=== PATIENT | male | born 1980 | race Caucasian/White ===

== ENCOUNTER 2019-06-02 10:24 | Inpatient (IN) | payer BC ==
[~2019-06-02] VITALS: Ht 172.7 cm; Wt 123.3 kg
[2019-06-02] MEDS ORDERED: PRINIVIL20 MG PO (10:36)
[2019-06-02 10:59] LABS: COLLECTION METHOD CLEAN CATCH
[2019-06-02 11:02] LABS: BASO % 0.1 % (0.0-2.0); GRAN # 19.5 (1.4-6.5); GRAN % 89.4 % (42.2-75.2); HEMATOCRIT 47.8 % (42.0-52.0); LYMPH # 0.9 (1.2-3.4); LYMPH % 4.3 % (20.0-51.0); MEAN CELL VOLUME 83 fl (80.0-100.0); MEAN CORPUSCULAR HEMOGLOBIN 29 pg (27.0-31.0); MEAN CORPUSCULAR HGB CONC 36 g/dl (33.0-37.0); MEAN PLATELET VOLUME 12.4 fl (7.4-10.4); MONO # 1.2 (0.1-0.6); MONO % 5.6 % (1.7-9.3); PLATELET COUNT 179 K/mm3 (130-400); RED BLOOD COUNT 5.78 M/mm3 (4.20-5.60); REDCELL DISTRIBUTION WIDTH-CV 13.2 % (11.5-14.5)
[2019-06-02 11:11] LABS: MUCOUS Present /lpf; PH 6 (5-8); SQUAMOUS EPITHELIAL 0-2 /hpf; URINE APPEARANCE Clear; URINE BACTERIA None Seen /hpf; URINE BILIRUBIN Negative (NEGATIVE); URINE BLOOD 1+ (NEGATIVE); URINE COLOR Yellow; URINE GLUCOSE Negative (NEGATIVE); URINE KETONE Negative (NEGATIVE); URINE LEUKOCYTE ESTERASE Negative (NEGATIVE); URINE NITRATE Negative (NEGATIVE); URINE PROTEIN(semi-quant) 2+ (NEGATIVE); URINE UROBILINOGEN Negative (NEGATIVE)
[2019-06-02 11:17] LABS: ALBUMIN 4.7 gm/dL (3.5-5.0); BILIRUBIN,TOTAL 1.4 mg/dL (0.0-1.0); CALCIUM 9.4 mg/dL (8.4-10.2); CREATININE, serum 0.92 (0.66-1.25); POTASSIUM 4.3 mmol/L (3.4-5.0)
[2019-06-02 11:30] LABS: C-REACTIVE PROTEIN 19.8 mg/dL (0.0-0.9)
[2019-06-02 12:54] VITALS: BP 129/79; PULSE 90; TEMP 99.4
[2019-06-02 12:58] LABS: CHOLESTEROL RISK RATIO 4.3
--- NOTE | 2019-06-02 14:03 | NUR ---
PATIENT ADMITTED TO ROOM 319 AT BEDSIDE. HE WAS COMPLAINING OF ABDOMEN PAIN AND PRN DILAUDID WAS GIVEN FOR THIS. ASSESSMENT COMPLETED AND WILL NOTIFY DR. MILLER OF HIS ARRIVAL
--- NOTE | 2019-06-02 15:05 | NUR ---
PRN DILAUDID GIVEN FOR COMPLAINTS OF PAIN. FAMILY AT BEDSIDE. DENIES FURTHER NEEDS AT THIS TIME.
[2019-06-02 15:22] VITALS: BP 130/78; PULSE 94; TEMP 98.5
--- NOTE | 2019-06-02 19:27 | NUR ---
PATIENT COMPLAINS OF ABD PAIN PRN DILAUDID GIVEN
--- NOTE | 2019-06-02 20:00 | NUR ---
Assessment complete. Alert and oriented. Pt laying in bed with at bedside. C/O abdominal pain with movement , rate 5/10. PRN Dilaudid administered as requested by pt. Pt states relief. Denies headache, NVD at this time. NPO status maintained. IV to LAC patent, dressing CDI, NS infusing at 150/hr. Needs met at this time. Call light within reach.
[2019-06-02 21:37] VITALS: BP 113/5; PULSE 103; TEMP 99.7
[2019-06-03] VITALS (7 sets, daily range): BP systolic 96–133; BP diastolic 51–76; PULSE 82–94; TEMP 98.1–99.7
--- NOTE | 2019-06-03 06:33 | NUR ---
Pt slept ok throughout the night. Requested PRN dilaudid throughout the night for abdominal pain. at bedside. Needs met. Call light within reach.
--- NOTE | 2019-06-03 06:45 | NUR ---
appears to be dozing but awakens easily, bedside shift report received from STEFANIE Okeefe
[2019-06-03 07:12] LABS: BASO % 0.1 % (0.0-2.0); GRAN # 14.1 (1.4-6.5); GRAN % 87.3 % (42.2-75.2); HEMATOCRIT 43.1 % (42.0-52.0); LYMPH # 0.9 (1.2-3.4); LYMPH % 5.6 % (20.0-51.0); MEAN CELL VOLUME 85 fl (80.0-100.0); MEAN CORPUSCULAR HEMOGLOBIN 29 pg (27.0-31.0); MEAN CORPUSCULAR HGB CONC 34 g/dl (33.0-37.0); MEAN PLATELET VOLUME 12.5 fl (7.4-10.4); MONO % 6.3 % (1.7-9.3); PLATELET COUNT 132 K/mm3 (130-400); RED BLOOD COUNT 5.06 M/mm3 (4.20-5.60); REDCELL DISTRIBUTION WIDTH-CV 13.5 % (11.5-14.5)
[2019-06-03 07:15] LABS: HEMOGLOBIN 14.6 g/dl (13.5-18.0)
[2019-06-03 07:19] LABS: ALBUMIN 3.4 gm/dL (3.5-5.0); BILIRUBIN,TOTAL 1.1 mg/dL (0.0-1.0); CALCIUM 8.1 mg/dL (8.4-10.2); CREATININE, serum 0.95 (0.66-1.25); MAGNESIUM 1.6 mg/dL (1.6-2.3); PHOSPHOROUS 1.9 mg/dL (2.5-4.5); POTASSIUM 3.9 mmol/L (3.4-5.0); TOTAL PROTEIN 6.3 gm/dL (6.4-8.2)
--- NOTE | 2019-06-03 07:40 | NUR ---
appears to be sleeping, in bed with lights off, eyes closed, resp quiet and easy, at bedside
--- NOTE | 2019-06-03 09:00 | NUR ---
awake resting in bed, requesting something for pain, student nurse notifed
--- NOTE | 2019-06-03 09:50 | NUR ---
MEDICATIONS GIVEN WITH INSTRUCTOR AMANDO RN MSN AT BEDSIDE
--- NOTE | 2019-06-03 10:00 | NUR ---
resting in bed, was given dilaudid 0.25mg iv by practical nursing teacher, full assessment completed, see intervention for further info
--- NOTE | 2019-06-03 10:25 | NUR ---
Dr Richmond and care team in to see patient
--- NOTE | 2019-06-03 10:32 | NUR ---
VICENTE met with the patient and the patient's , Yoselyn (ph#[phone]), to discuss discharge plan. The patient lives in [place] with his and their two children. He reports independence with ADLs and does not have any DME. The patient's PCP is Dr. Yoselyn Rodriges and he receives his medications at [facility]. He reports no difficulties obtaining his meds. The patient does not have advanced directives completed, but he was interested in obtaining a form for [facility]-[facility]. VICENTE provided. The patient plans to return home with his family upon discharge. No additional needs at this time.
--- NOTE | 2019-06-03 10:50 | NUR ---
radiology personnel in to complete abdominal ultra sound
--- NOTE | 2019-06-03 11:52 | NUR ---
c/o pain since having the ultrasound and medicated with hydrocodone 5mg 1 tab, visiting with family
--- NOTE | 2019-06-03 12:33 | NUR ---
@11:15 a.m IV rate decreased from 150ml\hr to 125ml/hr. Call light in place. No further interventions at this time.
--- NOTE | 2019-06-03 13:55 | NUR ---
resting in bed, had clear liquids for lunch and tolerated well, denies pain at this time
--- NOTE | 2019-06-03 14:52 | NUR ---
Adminstered pain medication as ordered. Pt rating pain a 10/17. Instructor Anat Chi RN MSN at bedside during administration.
--- NOTE | 2019-06-03 16:45 | NUR ---
bedside shift report given to STEFANIE Zazueta
--- NOTE | 2019-06-03 20:00 | NUR ---
Assessment complete. Pt laying in bed. Alert and oriented. Denies pain at rest. Pt does c/o abdomen pain upon movement, rate 5/10. Pain relieved with PRN Dilaudid, rate 3/10. IV to LAC patent with NS infusing at 125ml/hr, dressing CDI. Needed met. Call light within reach.
[2019-06-04 03:33] VITALS: BP 100/60; PULSE 89; TEMP 98.9
--- NOTE | 2019-06-04 05:08 | NUR ---
Pt slept throughout the night. c/o abdomen pain rate 4/10. PRN [place] administered with relief. Needs met. Call light within reach.
[2019-06-04 07:33] LABS: ALBUMIN 3.2 gm/dL (3.5-5.0); BILIRUBIN,TOTAL 0.9 mg/dL (0.0-1.0); CALCIUM 7.9 mg/dL (8.4-10.2); CREATININE, serum 0.82 (0.66-1.25)
[2019-06-04 07:36] LABS: BASO % 0.3 % (0.0-2.0); EOS # 0.1 (0.0-0.7); EOS % 1.2 % (0-4.0); GRAN # 9.5 (1.4-6.5); GRAN % 80.8 % (42.2-75.2); HEMATOCRIT 38.1 % (42.0-52.0); HEMOGLOBIN 12.7 g/dl (13.5-18.0); LYMPH # 1.1 (1.2-3.4); LYMPH % 9.1 % (20.0-51.0); MEAN CELL VOLUME 87 fl (80.0-100.0); MEAN CORPUSCULAR HEMOGLOBIN 29 pg (27.0-31.0); MEAN CORPUSCULAR HGB CONC 33 g/dl (33.0-37.0); MEAN PLATELET VOLUME 12.6 fl (7.4-10.4); MONO % 8.1 % (1.7-9.3); PLATELET COUNT 112 K/mm3 (130-400); RED BLOOD COUNT 4.37 M/mm3 (4.20-5.60); REDCELL DISTRIBUTION WIDTH-CV 13.5 % (11.5-14.5)
--- NOTE | 2019-06-04 07:46 | NUR ---
Assessment completed, alert/oriented, vital signs stable, reports feeling pretty well/ pain is decreased and he is tolerting Clear liquid diet without increased pain or nausea, he has BM this morning, BS+ throughout, heart RRR, lungs CTA, patient report being sore from lay in bed and not doing much, I have encouraged him to get up and ambulate the hallways regularly, denies other needs at this time
[2019-06-04 07:49] VITALS: BP 112/66; PULSE 91; TEMP 98.4
[2019-06-04 11:44] VITALS: BP 108/55; PULSE 79; TEMP 100.4
[2019-06-04] MEDS ORDERED: NORCO 325 MG-101 TAB PO (13:17)
--- NOTE | 2019-06-04 14:00 | NUR ---
[place] tolerated lunch well without any increase in pain/N/V, I have notified hospitalist that he would like to be discharged
--- NOTE | 2019-06-04 16:21 | NUR ---
Discharge instructions reviewed with the patient, instructed to advance diet slowly and to avoid high fat foods and alcohol, instructed to follow up with PCP as we scheduled for him, IV removed, leaving with his , I personally escorted him out the door
== END 2019-06-04 16:23 | disposition home or self-care (01) | DRG 439 ==
LOC: COL.ER 10:24 → MEDICAL 11:48
PROVIDERS: Physician Assistant; ADMIT Family Medicine
DX: K85.90 Acute pancreatitis without necrosis or infection, unspecified (principal); R65.10 Systemic inflammatory response syndrome (SIRS) of non-infectious origin without acute organ dysfunction; Z68.41 Body mass index [BMI] 40.0-44.9, adult; K76.0 Fatty (change of) liver, not elsewhere classified; I10 Essential (primary) hypertension; E66.9 Obesity, unspecified; T50.2X5A Adverse effect of carbonic-anhydrase inhibitors, benzothiadiazides and other diuretics, initial encounter
CPT/HCPCS: 99222-AI; 99232-AI; 99239; J1170; J1650; J2405; J7030; Q9967

== ENCOUNTER 2024-03-15 09:56 | Day surgery (SDC) | payer BC ==
[~2024-03-15] VITALS: Ht 172.7 cm; Wt 113.7 kg
[~2024-03-15 09:56] MED LIST: LR 1,000 ML IV SCH; NORCO 325 MG-101 TAB PO; Ondansetron 4 MG/2 ML VIAL IV PRN; PRINIVIL20 MG PO
[2024-03-15] MEDS ORDERED: LIPITOR20 MG PO (10:14)
[2024-03-15 10:43] VITALS: BP 112/81; PULSE 69; TEMP 97.7
[2024-03-15] MEDS ORDERED: Lidocaine PF 2% (20 MG/ML) 5 ML VIAL ONE (11:05)
[2024-03-15] MEDS ORDERED: fentaNYL 50 MCG/ML 2 ML VIAL ONE (11:05)
[2024-03-15 11:47] VITALS: BP 117/87; PULSE 63
[2024-03-15 12:00] VITALS: BP 123/81; PULSE 59
--- NOTE | 2024-03-15 16:21 | NUR ---
1147- PT BACK FROM ENDO PROCEDURE TO BAY 6 VIA CART. PT AMBULATED FROM CART TO RECLINER WITH ASSISTANCE. MONITORS ON AND ALARMS SET. REPORT RECIEVED FROM STEFANIE CERRATO. CALL LIGHT WITHIN REACH. PT REQUESTS FOOD AND DRINK. NO OTHER NEEDS AT THIS TIME. 1200- PT TAKING FOOD AND DRINK WELL. NO COMPLICATIONS NOTED. 1225- DISCHARGE PAPERWORK GIVEN TO PT. QUESTIONS ANSWERED. 1240- PT TRANSFERRED OUT OF HOSPITAL VIA WHEELCHAIR TAKEN OUT BY NURSES AID TO OWN PRIVATE VEHICLE DRIVEN BY .
== END 2024-03-15 12:40 | disposition home or self-care (01) ==
LOC: SDCO 09:56
DX: Z12.11 Encounter for screening for malignant neoplasm of colon (principal); D12.4 Benign neoplasm of descending colon; K57.30 Diverticulosis of large intestine without perforation or abscess without bleeding; I10 Essential (primary) hypertension; Z79.899 Other long term (current) drug therapy
CPT/HCPCS: J2704; J3010; J7120